=== PATIENT | male | born 1965 | race Asian ===

== ENCOUNTER 2022-12-20 14:10 | Emergency (ER) | payer OTHER ==
[~2022-12-20] VITALS: Ht 160 cm; Wt 68.9 kg
[2022-12-20] MEDS ORDERED: IV NORMAL SALINE 500 ML BAG IV ONE (14:30)
[2022-12-20] MEDS ORDERED: ONDANSETRON 4 MG/2 ML VIAL IV ONE (14:30)
[2022-12-20] MEDS ORDERED: HYDROMORPHONE 1 MG/1 ML DISP.SYRIN IV ONE (14:30)
[2022-12-20] MEDS ORDERED: ONDANSETRON 4 MG/2 ML VIAL ONE (14:32)
[2022-12-20] MEDS ORDERED: MORPHINE SULFATE 4 MG/1 ML DISP.SYRIN ONE (14:33)
[2022-12-20] MEDS ORDERED: MORPHINE SULFATE 4 MG/1 ML DISP.SYRIN IV ONE (14:45)
[2022-12-20 14:56] LABS: HEMATOCRIT 40.3 % (36.7-47.1); MEAN CORPUSCULAR HEMOGLOBIN 30.6 uug (23.8-33.4); PLATELET COUNT (AUTO) 354 K/uL (152-348)
[2022-12-20 15:10] LABS: CARBON DIOXIDE 29 mmol/L (21-32); CHLORIDE 100 mmol/L (98-107); GLUCOSE 148 mg/dL (74-106); POTASSIUM 3.5 mmol/L (3.5-5.1); UREA NITROGEN, BLOOD 12 mg/dL (7-18)
[2022-12-20 15:20] LABS: ALANINE AMINOTRANSFERASE 28 U/L (16-63); ALKALINE PHOSPHATASE 106 U/L (50-136); BILIRUBIN,DIRECT < 0.1 mg/dL (0.0-0.2); BILIRUBIN,TOTAL 0.2 mg/dL (0.2-1.0); LIPASE 144 U/L (73-393); TOTAL PROTEIN, SERUM 7.6 g/dL (6.4-8.2)
[2022-12-20 15:29] LABS: *BILIRUBIN,URIN NEGATIVE (NEGATIVE); *BLOOD, URINE NEGATIVE (NEGATIVE); *CLARITY,URINE CLEAR (CLEAR); *COLOR,URINE YELLOW (YELLOW); *KETONES,URINE NEGATIVE (NEGATIVE); *UROBILINOGEN,URINE 0.2 E.U./dl (NORMAL); LEUKOCYTE ESTERASE ,URINE NEGATIVE (NEGATIVE); NITRITE, URINE NEGATIVE (NEGATIVE); UGLUCOSE NEGATIVE (NEGATIVE)
[2022-12-20 15:30] LABS: ASPARTATE AMINOTRANSFERASE 17 U/L (15-37)
[2022-12-20] MEDS ORDERED: ONDA4TAB5 PO (15:55)
--- NOTE | 2022-12-20 16:20 | NUR ---
Patient discharged to home in stable condition. Written and verbal after care instructions given. Patient verbalizes understanding of instructions. Stressed follow up or return to ER for worsening s/s.
--- NOTE | 2022-12-20 16:20 | NUR ---
IV removed. Catheter intact and site benign. Pressure and 4x4 gauze applied to site. No bleeding noted.
[2022-12-20 16:21] VITALS: BP 122/80
== END 2022-12-20 16:22 | disposition home or self-care (01) ==
LOC: ER 14:10
DX: R10.84 Generalized abdominal pain (principal); R11.0 Nausea; R07.89 Other chest pain; Z88.8 Allergy status to other drugs, medicaments and biological substances
CPT/HCPCS: 99285; 74176; 96374; 71045; 96361; 96375; 80076; 80048; 81003; 83690; 85025; 84484; 36415; 93005; J2405; J2270; J7040; A4663